=== PATIENT | female | born 1970 | race Caucasian/White ===

== ENCOUNTER 2023-07-21 18:50 | Emergency (ER) | payer OTHER ==
[~2023-07-21] VITALS: Ht 165.1 cm; Wt 83.1 kg
[2023-07-21] MEDS ORDERED: SINGULAIR10 MG (19:05)
[2023-07-21] MEDS ORDERED: PEPCID40 MG (19:05)
[2023-07-21] MEDS ORDERED: LAMICTAL25 MG (19:05)
[2023-07-21] MEDS ORDERED: ACYCLOVIR400 MG (19:05)
[2023-07-21] MEDS ORDERED: CYCLOBENZAPRINE10 MG (19:06)
[2023-07-21] MEDS ORDERED: CELEBREX100 MG (19:06)
[2023-07-21] MEDS ORDERED: NEURONTIN300 MG (19:06)
[2023-07-21 19:54] VITALS: BP 119/77
== END 2023-07-21 19:45 | disposition home or self-care (01) ==
LOC: ED 18:50
DX: B86 Scabies (principal); Z88.2 Allergy status to sulfonamides; Z88.5 Allergy status to narcotic agent; Z79.899 Other long term (current) drug therapy
CPT/HCPCS: 96372; 99282; J1100